=== PATIENT | female | born 1955 | race Caucasian/White ===

== ENCOUNTER 2021-03-26 10:43 | Inpatient (IN) | payer BC ==
[~2021-03-26] VITALS: Ht 157.5 cm; Wt 74.8 kg
[2021-03-26 10:53] VITALS: BP_SYST 202
[2021-03-26] MEDS ORDERED: COMMUNICATION ORDER XX ONE (11:15)
[2021-03-26] MEDS ORDERED: LABETALOL 100 MG/ 20ML VIAL IVP ONE (12:00)
--- NOTE | 2021-03-26 12:29 | NUR ---
Assumed care of pt
--- NOTE | 2021-03-26 12:30 | NUR ---
assessment done, pt. having hard time answering questions and finding her words, has mild confussion, does follow directions, daughter at bedside concerned pt. typically alert and sharp and recently had second round of chemo for colon CA this past ; friday started having signs of confussion
--- NOTE | 2021-03-26 12:45 | NUR ---
BP 202/93, IV started, labs drawn
--- NOTE | 2021-03-26 13:00 | NUR ---
pushed labatelol BP checked went down 188/83, 176/74 after 10mg of labatelol pushed informed Dr. Easley order to push other 10mg, BP now 154/57 P-69
[2021-03-26 13:10] LABS: BILIRUBIN,URINE NEGATIVE (NEGATIVE); BLOOD, URINE NEGATIVE (NEGATIVE); CLARITY/URINE CLEAR (CLEAR); COLOR,URINE YELLOW (YELLOW); GLUCOSE,URINE TRACE (NEGATIVE); KETONES,URINE TRACE (NEGATIVE); LEUKOCYTE ESTERASE ,URINE NEGATIVE (NEGATIVE); NITRITE, URINE NEGATIVE (NEGATIVE); PROTEIN URINE NEGATIVE (NEGATIVE); UROBILINOGEN,URINE 0.2 (0.2-1.0)
[2021-03-26 13:11] LABS: BASOPHILS % (AUTO) 0.6 % (0.0-2.0); EOSINOPHILS # (AUTO) 0.1 K/uL (0.0-0.4); HEMATOCRIT 38.6 % (36-48); LYMPHOCYTES # (AUTO) 1.1 K/uL (1.0-5.5); MEAN CORPUSCULAR HEMOGLOBIN 24 pg (27-31); MEAN CORPUSCULAR HGB CONC 34 % (32-36); MEAN CORPUSCULAR VOLUME 71 fL (79.0-98.0); MONOCYTES # (AUTO) 0.1 K/uL (0.0-1.0); NEUTROPHILS # (AUTO) 1.4 K/uL (1.8-7.7); NEUTROPHILS % (AUTO) 51.4 % (40.0-70.0); PLATELET COUNT (AUTO) 162 K/uL (130-430); RED BLOOD CELL COUNT(AUTO) 5.42 MIL/uL (4.2-6.2); RED CELL DISTRIBUTION WIDTH 14.3 % (9.0-15.0); WHITE BLOOD COUNT (AUTO) 2.7 K/uL (4.8-10.8)
[2021-03-26 13:23] LABS: ANION GAP 7 (5-15); CALCIUM 8.6 mg/dL (8.4-11.0); CHLORIDE 99 mmol/L (98-107); CREATININE 0.57 mg/dL (0.55-1.30); GLUCOSE 156 mg/dL (70-99); SODIUM SERUM 136 mmol/L (136-145); UREA NITROGEN, BLOOD 11 mg/dL (8-21)
[2021-03-26 13:26] LABS: GFR AFRICAN AMERICAN 136 mL/min (>90)
[2021-03-26 13:31] LABS: ALANINE AMINOTRANSFERASE 90 U/L (12-78); ALBUMIN 2.9 g/dL (3.4-4.8); ASPARTATE AMINOTRANSFERASE 70 U/L (10-37); TOTAL BILIRUBIN 0.3 mg/dL (0.0-1.0)
--- NOTE | 2021-03-26 13:57 | NUR ---
admit orders rec'd from Dr. Marcos
[2021-03-26] MEDS ORDERED: MUPIROCIN 2% TOPICAL OINTMENT 22 GM NS PRN (15:00)
[2021-03-26] MEDS ORDERED: ZOLPIDEM TARTRATE 5 MG TABLET PO PRN (15:00)
[2021-03-26] MEDS ORDERED: MAGNESIUM SULFATE 50 ML IV PRN (15:00)
[2021-03-26] MEDS ORDERED: POTASSIUM CHLORIDE 20 MEQ TAB.PRT.SR PO PRN (15:00)
[2021-03-26] MEDS ORDERED: ONDANSETRON HCL 4 MG/2 ML VIAL IVP PRN (15:00)
[2021-03-26] MEDS ORDERED: LORazepam 2 MG/ML VIAL IVP PRN (15:00)
[2021-03-26] MEDS ORDERED: DOCUSATE SODIUM 100 MG CAPSULE PO PRN (15:00)
[2021-03-26] MEDS ORDERED: cloNIDine HCL 0.2 MG TABLET PO PRN (15:00)
[2021-03-26] MEDS ORDERED: lisinopriL 20 MG TABLET PO ONE (15:30)
[2021-03-26] MEDS ORDERED: amLODIPine BESYLATE 10 MG TABLET PO ONE (15:30)
--- NOTE | 2021-03-26 16:06 | NUR ---
daughter at bedside, questions answered, POC reviewed
--- NOTE | 2021-03-26 17:58 | NUR ---
Dr. Reece spoke to at [facility] regarding possible transfer
[2021-03-26] MEDS ORDERED: ONDA-8 TL (19:50)
[2021-03-26] MEDS ORDERED: ROSU10TA2 PO (19:50)
[2021-03-26] MEDS ORDERED: HYDR-4037 PO (19:50)
[2021-03-26] MEDS ORDERED: FURO-150 PO (19:50)
[2021-03-26] MEDS ORDERED: AMLO5TAB4 PO (19:50)
[2021-03-26] MEDS ORDERED: SEMA1PEN SQ (19:50)
--- NOTE | 2021-03-26 20:00 | NUR ---
VSS no s/s of acute distress, with family at bedside, ER passenger rate clerk still following up on transfer to [facility]
--- NOTE | 2021-03-26 22:05 | NUR ---
VSS no s/s of acute distress Resting on gurney rails up, with family member at bedside awaiting transfer to [facility]
--- NOTE | 2021-03-26 23:08 | NUR ---
VSS with family at bedside, resting in comfort, however, verbal expressed fruastration with Chris [facility]
--- NOTE | 2021-03-27 00:55 | NUR ---
Daughter remains at bedside, she states her mom has bad " sun downer "
--- NOTE | 2021-03-27 01:55 | NUR ---
Daughter left bedside, leaving pt's belonging remaining with pt at bedside
--- NOTE | 2021-03-27 02:12 | NUR ---
No updates from [facility] as of yet
[2021-03-27 06:49] LABS: BASOPHILS # (AUTO) 0.1 K/uL (0.0-0.2); BASOPHILS % (AUTO) 1.1 % (0.0-2.0); EOSINOPHILS # (AUTO) 0.1 K/uL (0.0-0.4); HEMATOCRIT 37.6 % (36-48); HEMOGLOBIN 12.6 g/dL (12.0-16.0); LYMPHOCYTES % (AUTO) 41.6 % (20.5-51.5); MEAN CORPUSCULAR HEMOGLOBIN 24 pg (27-31); MEAN CORPUSCULAR HGB CONC 34 % (32-36); MEAN CORPUSCULAR VOLUME 72 fL (79.0-98.0); MONOCYTES # (AUTO) 0.3 K/uL (0.0-1.0); MONOCYTES % (AUTO) 6.3 % (1.7-9.3); NEUTROPHILS # (AUTO) 2.3 K/uL (1.8-7.7); PLATELET COUNT (AUTO) 152 K/uL (130-430); RED BLOOD CELL COUNT(AUTO) 5.22 MIL/uL (4.2-6.2); RED CELL DISTRIBUTION WIDTH 14.5 % (9.0-15.0); WHITE BLOOD COUNT (AUTO) 4.9 K/uL (4.8-10.8)
[2021-03-27 07:39] LABS: CALCIUM 8.6 mg/dL (8.4-11.0); CREATININE 0.51 mg/dL (0.55-1.30); POTASSIUM 3.8 mmol/L (3.5-5.1)
[2021-03-27] MEDS ORDERED: DEXTROSE 50% JECT 50 ML DISP.SYRIN IVP PRN (08:15)
[2021-03-27] MEDS ORDERED: NACL 0.9% 1,000 ML IV SCH (08:15)
[2021-03-27] MEDS ORDERED: lisinopriL 20 MG TABLET PO SCH (09:00)
[2021-03-27] MEDS ORDERED: amLODIPine BESYLATE 5 MG TABLET PO SCH (09:00)
[2021-03-27] MEDS ORDERED: ASPIRIN 81 MG TABLET(ECOTRIN) PO SCH (09:00)
[2021-03-27] MEDS ORDERED: amLODIPine BESYLATE 10 MG TABLET PO SCH (09:00)
[2021-03-27] MEDS ORDERED: FUROSEMIDE 20 MG TABLET PO SCH (09:00)
--- NOTE | 2021-03-27 09:16 | NUR ---
ER physician at bedside
--- NOTE | 2021-03-27 09:17 | NUR ---
Patient will be admitted to care of Dr. Marcos. Admitted to Tele unit. Will go to room 110B. Belongings list completed. Complete and up to date summary report printed. SBAR report to be given at bedside with opportunity for questions.
[2021-03-27 09:38] VITALS: BP_SYST 205
[2021-03-27] MEDS: INSULIN LISPRO SLIDING SCALE 100 UNITS/ML VIAL (humaLOG) SUBCUT PRN ×2 (11:08→22:30)
[2021-03-27 11:45] VITALS: BP_SYST 150
--- NOTE | 2021-03-27 13:14 | NUR ---
admission 0938 LATE ENTRY ADMIT NOTE Received pt from ER to the floor with a diagnosis of TIA. Admission process initiated. patient oriented to pain management, safety and call light-teach back done.
--- NOTE | 2021-03-27 13:17 | NUR ---
Patient's daughter requested transfer to [facility] under the care of Denise Bynum, patient's regular doctor. Spoke w/ Prema at [facility] [phone]. She requested medical records that have been sent to [facility] transfer Ctr.
[2021-03-27] MEDS ORDERED: GADOTERATE MEGLUMINE 7.5 MMOL/15 ML VIAL IV ONE (13:23)
[2021-03-27 16:10] VITALS: BP_SYST 145
--- NOTE | 2021-03-27 17:29 | NUR ---
CONSULTATION PAGED/CALLED Reason for Consultation: CONFUSION Person Who was Notified: DR FOWLER Consulting Physician: DR FOWLER [employer] Pens Assembler Specialty: NEURO Ordering Physician: AMEE SENT TEXT MESSAGE PERFERED
--- NOTE | 2021-03-27 18:42 | NUR ---
[facility] WAS CALLED FOR FOR TRANSPORT TO [facility] ROOM 5122 FOR REPORT CALL [phone] PRODUCT MARKETER TIME IS 2300 GOING ACLS WITH A HEART MONITOR
--- NOTE | 2021-03-27 20:04 | NUR ---
NURSING 13:00- TO MRI VIA GURNEY 14:00 PATIENT IS IN BED. [email or web address] AT BEDSIDE. 16:30 RECEIVED CALL FROM [facility]. PATIENT IS ACCEPTED FOR TRANSFER. PER NINO OF [facility], THERE IS NO NEED FOR MD TO MD REPORT AT THIS TIME 17:00 S/W DR LUBIN TO GAVE ORDER TO TRANSFER. DAUGHTER IS NOTIFIED. 18:00 FACILITATE TRANSFER, LATEST AMBULANCE MUSHROOM FARMER IS AT 11PM. [facility] NOYIFIED. 19:00- PATIENT REMAINED CONFUSED. 20:00 - GAVE REPORT TO JULY RN OF [facility] , PATIENT IS GOING TO ROOM 1915
[2021-03-27] MEDS: hydrALAZINE HCL 10 MG TABLET PO SCH ×2 (20:17→22:20)
[2021-03-27 20:21] VITALS: BP_SYST 159
[2021-03-27 21:45] VITALS: BP_SYST 159
--- NOTE | 2021-03-27 22:20 | NUR ---
APRESOLINE DOCUMENTED AT THIS TIME WAS GIVEN AT 201603/27/2021
== END 2021-03-28 00:08 | disposition short-term general hospital (02) | DRG 65 ==
LOC: SED 10:43 → STU 13:51
PROVIDERS: ADMIT General Practice; ATTEND General Practice
DX: I63.9 Cerebral infarction, unspecified (principal); E44.0 Moderate protein-calorie malnutrition; C18.9 Malignant neoplasm of colon, unspecified; G90.8 Other disorders of autonomic nervous system; E11.9 Type 2 diabetes mellitus without complications; E78.5 Hyperlipidemia, unspecified; E83.41 Hypermagnesemia; I10 Essential (primary) hypertension; R74.01 Elevation of levels of liver transaminase levels; Z20.822 Contact with and (suspected) exposure to COVID-19; Z88.6 Allergy status to analgesic agent; Z88.8 Allergy status to other drugs, medicaments and biological substances; Z79.899 Other long term (current) drug therapy; Z68.30 Body mass index [BMI] 30.0-30.9, adult
CPT/HCPCS: 36415; 70450-TC; 70553; 76376; 80048; 80053; 81003; 82962; 83036; 83735; 84484; 85025; 93005; 96374; 99285; A9575; G0378; J3490